=== PATIENT | female | born 1990 | race Caucasian/White ===

== ENCOUNTER 2016-11-29 07:38 | Emergency (ER) | payer OTHER ==
[~2016-11-29] VITALS: Ht 165.1 cm; Wt 59.1 kg
[2016-11-29 07:46] VITALS: BP 135/86; PULSE 97; RESP 14; O2SAT 97
--- NOTE | 2016-11-29 07:58 | ED.REPORT ---
HPI-General Illness Date of Service November 29, 2016 ED Provider: Andrea Alanis MD The patient is a 26 year old female w/ a hx of cellulitis and IV drug use who presents to the ED due to a diffuse, erythematous rash on the left side of her face onset 4 days ago and getting progressively worse. Associated symptoms include left eye pain. The rash has a "sore, throbbing, pain." She denies fever , vomiting, and blurry vision. She has never had anything like this before. She began antibiotics for cellulitis (Keflex, Tramadol, Bactrim and Ibuprofen) 10 days ago, but she stopped taking Bactrim 3 days ago bc she thought she was having an allergic rxn to it. Nursing Notes Stated Complaint: POSSIBLE ALLERGIC REACTION/RASH LEFT EYE Chief Complaint: Eye Nursing Notes Reviewed: Yes Allergies: Coded Allergies: No Known Allergies (Unverified , 11/29/16) Scheduled Acyclovir (Acyclovir) 800 Mg Tab 800 MG PO 5XD Dicloxacillin (Dicloxacillin) 250 Mg Capsule 500 MG PO QID General Time Seen by MD: 07:56 Chief Complaint Rash Hx Obtained From: Patient Arrived By: Walk-in Onset Occurred: 4 days ago Symptom Duration: Since onset Location: : Face Quality: Painful Severity: Current: Mild Recent Healthcare: No recent doctor visit, No recent hospitalization Similar Sx Previous: No Past Medical History Past Medical History denies Past Surgical History Reports: Tonsillectomy Smoking History Current Every Day Smoker Social History Drug Use: IV drugs (heroin) Other Social History: Good social support, Local resident Ambulatory Status Independent Review of Systems Full Review of Systems Constitutional: Denies: Fever Eyes: Reports: Eye pain left, Denies: Blurred bilateral, Eye pain right GI: Denies: Vomiting Skin: Reports Rash Complete sys rev & neg: except as marked. Physical Exam Vital Signs Vital Signs Date Time Temp Pulse Resp B/P Pulse Ox O2 Delivery O2 Flow Rate FiO2 11/29/16 11:34 91 16 128/82 100 Room Air 11/29/16 07:46 36.2 97 14 135/86 97 Room Air Initial VS: Reviewed Respiratory: Breath sounds normal, Clear to auscultation, No respiratory distress Cardiovascular: Regular rate & rhythm, Heart sounds normal, Intact distal pulses Abdomen / GI: Soft, Non-tender, No guarding, No rebound, No distention Back: No CVA tenderness Extremities: Vascular intact, Neuro intact, No swelling, No tenderness Neurologic: Alert, Oriented General/Constitutional: Awake, Alert, Cooperative, Not toxic appearing Head / Eyes: Normocephalic Eye exam: No corneal involvement no dendritic lesions slip lamp w/out flare Color / Condition: Positive: Rash present Rash / Lesion Notes: Diffuse facial erythematous plaques Rash / Lesion Location: Positive: Face Interpretation & Diagnostics Interpretation & Diagnostics: ORBITAL CT IMPRESSION: 1. Mild appearance of left extraconal periorbital soft tissues suggestive of cellulitis. Dictated by: Anjelica Mckeon M.D. on 11/29/2016 at 10:55 Approved by: Anjelica Mckeon M.D. on 11/29/2016 at 10:56 Lab Results Interpretation Result Diagram: 11/29/16 0900 11/29/16 0900 Test 11/29/16 09:00 11/29/16 10:23 11/29/16 11:30 White Blood Count 10.0th/mm3 (3.8-10.1) Red Blood Count 4.82mil/mm3 (3.90-5.20) Hemoglobin 14.1g/dL (12.0-15.6) Hematocrit 40.5% (35.0-46.0) Mean Corpuscular Volume 84.0fL (81-100) Mean Corpuscular Hemoglobin 29.3pg (27.0-35.0) Mean Corpuscular Hemoglobin Concent 34.8% (32.0-37.0) Red Cell Distribution Width 12.7% (12.3-15.4) Platelet Count 341bil/L (150-400) Neutrophils (%) (Auto) 70.0% (40-74) Lymphocytes (%) (Auto) 18.8% (14-46) Monocytes (%) (Auto) 6.9% (4-12) Eosinophils (%) (Auto) 3.4% (0-5) Basophils (%) (Auto) 0.7% (0-3) Sodium Level 136mEq/L (134-144) Potassium Level 3.6mEq/L (3.5-5.2) Chloride Level 97mEq/L (97-108) Carbon Dioxide Level 24mmol/L (18-29) Blood Urea Nitrogen 15mg/dL (6-20) Creatinine 0.52mg/dL (0.57-1.00) Estimat Glomerular Filtration Rate 201mL/min (>59) Glucose Level 99mg/dL (60-99) Calcium Level 9.6mg/dL (8.5-10.1) Total Bilirubin 0.4mg/dL (0.0-1.2) Aspartate Amino Transf (AST/SGOT) 14U/L (0-50) Alanine Aminotransferase (ALT/SGPT) 11U/L (0-32) Alkaline Phosphatase 58U/L (25-150) Total Protein 8.1g/dL (6.4-8.4) Albumin 4.0g/dL (3.4-5.0) Hold Urine Received (Received) Re-Eval/Medical Decision Med Decision/Clinical Course 26-year-old female history of IV drug use presenting with left face rash 10 days. She is being treated for cellulitis of her left upper extremity which is resolved with Bactrim and Keflex which she stopped 3 days ago. She reports the left face rash has been red and raised no vesicles or blisters. She reports a dull ache. Left eye discomfort. On exam she has erythematous plaques left face involving the nose, forehead and left periorbital. Her left eyes full range of motion nontender no proptosis. CT orbits showed no evidence of orbital cellulitis. Labs unremarkable. I did discuss with ophthalmology to rule out zoster ophthalmicus and the reviewed picture of the rash and thought likely low suspicion zoster ophthalmicus given appearance but recommended treatment with oral acyclovir and no topical acyclovir times to follow up with them on Thursday. She was given a phone number for them. She is advised to return if any worsening pain, visual changes, pain with eye movement, any other new or worsening symptoms. She will also be given dicloxacillin to cover impetigo. Culture was sent. Return precautions given. Case discussed with ophthalmology. Dr. Groves does not think it's shingles but given the pt's hx plan to treat her with orals not topicals. Acyclovir 800 mg 2x /day. Time of Eval: 10:15 Re-Evaluation/Progress Note: Eye exam performed No corneal involvement no dendritic lesions slip lamp w/out flare plan to consult with opthalmology Consultation : Referral / Consult Name: Layne Groves MD Consulted With: Pairer Substandard Call Returned at: 10:27 Entry Level Mechanical Engineer: Agrees with eval, Agrees with plan Counseled Regarding: Diagnosis, Lab results, Need for follow-up, When/why to return to ED Discharge & Departure Primary Impression: Periorbital cellulitis of left eye Disposition: Home Discharge Condition All VS Reviewed: Yes Condition: Stable Patient Instructions: Periorbital Cellulitis in Adults (ED) Additional Instructions: Please stop your IV drug use, it is slowly killing you. Take your antibiotics and antivirals as scheduled. Acyclovir 800 mg 5x/day. Follow up with your primary care physician in the next week. Return to the Emergency Room immediately for any worsening eye pain, blurry vision, or any new or worsening symptoms. I hope you feel better soon, enjoy the beautiful [place] weather! Referrals: [facility] Scribe Attestation Portion of this note were transcribed by Zuri Naik. I, Dr. Alanis, personally performed the history, physical exam, and medical decision-making: I reviewed and confirmed the accuracy for the information in the transcribed note. Signed by: carl Villatoro, 11/29/16 1200 copies to: [facility] Andrea Alanis MD November 29, 2016 07:58 Zuri Naik November 29, 2016 08:29
[2016-11-29 09:32] LABS: BASOPHILS % (AUTO) 0.7 % (0-3); EOSINOPHILS % (AUTO) 3.4 % (0-5); MONOCYTES % (AUTO) 6.9 % (4-12); Mean Corpuscular Hemoglobin 29.3 pg (27.0-35.0); Platelet Count 341 bil/L (150-400)
[2016-11-29] MEDS ORDERED: Fluorescein 0.6 mg Ophthalmic Strip ONE (10:08)
[2016-11-29] MEDS ORDERED: 0.9% Sodium Chloride Inhalation Solution ONE (10:08)
[2016-11-29] MEDS ORDERED: Fluorescein 0.6 mg Ophthalmic Strip LEFT_EYE ONE (10:10)
[2016-11-29] MEDS ORDERED: Tetracaine 0.5% 4 mL Ophthalmic Solution LEFT_EYE ONE (10:10)
--- NOTE | 2016-11-29 10:58 | DRSVH ---
PROCEDURE: CT ORBITS WITH CONTRAST ([id number]) INDICATIONS: r/o orbital cellulitis TECHNIQUE: After the administration of intravenous contrast, 3.0 mm axial images acquired through the orbits, wi th coronal reformatting. For radiation dose reduction, the following was used: automated exposure c ontrol. COMPARISON: None. FINDINGS: Image quality: Excellent. Orbits: Globes are symmetrical. The optic nerves are normal in size and enhancement. No retrobulba r masses or fat abnormalities. The extra-ocular muscles are normal and symmetrical in appearance. L acrimal glands are normal. Optic chiasm is normal. There is a mild prominence of left extraconal per iorbital soft tissues. Retro-bulbar and intraconal contents are within normal limits. Intracranial: The pituitary gland is normal, without sellar or suprasellar masses. Visualized cereb ral hemispheres, brainstem, and spinal cord appear normal. Bones and sinuses: Visualized calvarium and facial bones appear intact. Visualized sinuses and mast oids are clear. IMPRESSION: 1. Mild appearance of left extraconal periorbital soft tissues suggestive of cellulitis. Dictated by: Anjelica Mckeon M.D. on 11/29/2016 at 10:55 Approved by: Anjelica Mckeon M.D. on 11/29/2016 at 10:56
[2016-11-29] MEDS ORDERED: ZOV800 PO (11:04)
[2016-11-29] MEDS ORDERED: DICL250C PO (11:04)
[2016-11-29 11:34] VITALS: BP 128/82; PULSE 91; RESP 16; O2SAT 100
== END 2016-11-29 11:36 | disposition home or self-care (01) ==
LOC: SED 07:38
DX: L03.213 Periorbital cellulitis (principal); F17.200 Nicotine dependence, unspecified, uncomplicated
CPT/HCPCS: 36415; 70481; 80053; 81025; 85025; 87070; 87075; 87205; 99284; G0433; Q9967